=== PATIENT | female | born 2000 | race Caucasian/White ===

== ENCOUNTER 2024-02-15 02:28 | Emergency (ER) | payer OTHER ==
[~2024-02-15] VITALS: Ht 152.4 cm; Wt 66.7 kg
[2024-02-15 07:37] VITALS: BP 121/78; TEMP 97.5; O2SAT 97
[2024-02-15] MEDS: IBUPROFEN 800 MG TAB PO ONE (07:43)
[2024-02-15] MEDS ORDERED: IBUP-1022 PO (08:36)
[2024-02-15] MEDS ORDERED: PYRI1TAB5 PO (08:36)
[2024-02-15 09:52] LABS: Trichomonas vaginalis (AMP) NOT DETECTED (NEGATIVE)
[2024-02-15 10:16] LABS: GC DNA AMPLIFICATION NEGATIVE (NEGATIVE)
== END 2024-02-15 08:47 | disposition home or self-care (01) ==
LOC: M ED 02:28 → EDBD 02:28 → M ED 08:47
DX: N93.9 Abnormal uterine and vaginal bleeding, unspecified (principal); R30.0 Dysuria; N94.19 Other specified dyspareunia; Z79.1 Long term (current) use of non-steroidal anti-inflammatories (NSAID); Z79.899 Other long term (current) drug therapy